=== PATIENT | male | born 1975 | race Caucasian/White ===

== ENCOUNTER 2017-02-14 19:50 | Emergency (ER) | payer MEDICAID, OTHER ==
[~2017-02-14] VITALS: Ht 182.9 cm; Wt 87.1 kg
[2017-02-14 19:59] VITALS: BP 124/74
== END 2017-02-14 20:40 | disposition home or self-care (01) ==
LOC: ED 20:21
DX: K02.9 Dental caries, unspecified (principal)
CPT/HCPCS: 99283